=== PATIENT | female | born 1975 | race Caucasian/White ===

== ENCOUNTER 2017-04-23 19:43 | Emergency (ER) | payer BC ==
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
[2017-04-23] MEDS ORDERED: Silver Sulfadiazine 1% Crm 50 GM Tube TOP ONE (20:13)
== END 2017-04-23 20:30 | disposition home or self-care (01) ==
LOC: VM.ED 19:43
DX: T20.23XA Burn of second degree of chin, initial encounter (principal); T20.22XA Burn of second degree of lip(s), initial encounter; T23.242A Burn of second degree of multiple left fingers (nail), including thumb, initial encounter; X12.XXXA Contact with other hot fluids, initial encounter
CPT/HCPCS: 16020; 99283; A9270